=== PATIENT | female | born 1990 | race Hispanic/Latino ===

== ENCOUNTER 2023-11-03 16:54 | Emergency (ER) | payer SELFPAY ==
[2023-11-03 16:56] VITALS: BP 155/88
[2023-11-03 17:28] LABS: ALT (SGPT) 19 U/L (0-35); AST (SGOT) 26 U/L (14-36); Albumin 4.7 g/dl (3.5-5.0); Alkaline Phosphatase 68 U/L (38-126); Blood Urea Nitrogen 11 mg/dl (7-17); Calcium 10.1 mg/dl (8.4-10.2); Carbon Dioxide 21 mmol/L (22-30); Chloride 105 mmol/L (98-107); Glucose 108 mg/dl (70-99); Potassium 3.8 mmol/L (3.5-5.1); Sodium 138 mmol/L (135-145); Total Bilirubin 0.8 mg/dl (0.2-1.3); Total Protein 8.2 g/dl (6.3-8.2); eGFR > 60.00
[2023-11-03 17:38] LABS: Troponin I < 0.012 ng/ml
[2023-11-03 17:45] LABS: HCG, Serum Qualitative Screen Negative; INR 1.02; PT 13.6 Sec (11.4-14.6)
[2023-11-03 18:45] VITALS: BP 127/68
[2023-11-03 19:02] LABS: % Basophils 0.2 % (0-2); % Eosinophils 0.2 % (0-6); % Immature Granulocytes 0.3 % (0-0.5); % Monocytes 4.2 % (1.7-9.3); % Neutrophils 79.1 % (42.2-75.2); Absolute Lymphocytes 1.7 10^3/uL (1.2-3.4); Absolute Monocytes 0.4 10^3/uL (0.1-0.6); Absolute Neutrophils 8.3 10^3/uL (1.4-6.5); Hematocrit 40.2 % (37.0-47.0); Hemoglobin 14.7 g/dL (12.0-16.0); Mean Corp Hgb Conc. 36.6 g/dL (33.0-37.0); Mean Corpuscular Hgb 31.6 pg (27.0-31.0); Mean Corpuscular Volume 86.5 fL (81.0-99.0); Mean Platelet Volume 9.9 fL (7.4-10.4); Nucleated Red Blood Cells % 0 %; Platelet Count 361 10^3/uL (130-400); Red Blood Cell Count 4.65 10^6/uL (4.20-5.40); Red Cell Dist. Width 11.9 % (11.5-14.5); White Blood Cell Count 10.4 10^3/uL (4.8-10.8)
--- NOTE | 2023-11-03 19:15 | ED.GENMED ---
History of Present Illness
General
Chief Complaint: Chest Pain
Time Seen by Provider: 11/03/23 18:45
Travel History
Have you had any contact with someone who has COVID-19?: No
Do you have any symptoms of coronavirus? Fever > 100 degrees, chills, cough, shortness of breath, sore throat, loss of taste or smell, muscle aches, or headache?: No
History of Present Illness
History of Present Illness:
32-year-old female presents to the emergency department for evaluation of left-sided chest pain ongoing for the past week. Patient requires Cambodian interpretation throughout the examination. Pain is mildly pleuritic, nonradiating. She denies any
traumatic injuries to the chest or upper extremity. Denies any associated fever, chills, sweats, coughing, nausea, vomiting, or diarrhea. She is not on any exogenous hormones. She does have a history of tuberculosis that was most recently treated
in 2018
Past History
Past History
ED Past Medical History: None
ED Past Surgical History: None
Social History
Tobacco: Non-smoker
Alcohol: None
Drug: None
Personal: Single
Living: other (WITH BOYFRIEND)
Review of Systems
Review of Systems
Allergies reviewed?: Yes
All Other Systems: ROS reviewed and negative except as documented in HPI and ROS
Phy Exam
Physical Exam
Physical Exam:
GEN: Well appearing, NAD, WDWN
HEENT: Oral mucosa moist, no scleral icterus
Cardiac: Regular rate
Lung: No respiratory distress, no tachypnea
MSK: No gross deformity or injuries
Skin: Good color, no pallor or jaundice, no rashes
Neuro: AO x3, moves all extremities freely
Psych: Calm, cooperative
Scores
Heart Score for Chest Pain Patients
STEMI patient?: No
History: Slightly or Non-Suspicious
ECG: Normal
Age: </= 45 years
Risk Factors: No Risk Factors
Troponin: </= Normal Limit
Heart Score for Chest Pain Patients: 0
Heart Score Risk: 2.5% MACE over next 6 weeks
Course
Orders/Labs/Results
Orders:
Orders
11/03/23 16:59
Electrocardiogram (*1) Urgent
Reason for Study: Chest Pain
EKG- Treatment ONCE
Test Result ONCE
11/03/23 17:08
Comprehensive Metabolic Panel Urgent
HCG, Serum Qualitative Screen Urgent
Prothrombin Time Urgent
Troponin I Urgent
11/03/23 18:45
Complete Blood Count/With Diff Urgent
11/03/23 19:24
D-Dimer Urgent
11/03/23 19:49
CR Chest - 2 Views Urgent
Comment:
Reason For Exam: L chest pain
Abnormal Lab Results
11/03/23 11/03/23
17:08 18:45
MCH 31.6 H pg
(27.0-31.0)
Absolute Neuts (auto) 8.3 H 10^3/uL
(1.4-6.5)
Neutrophils % 79.1 H %
(42.2-75.2)
Lymphocytes % 16.0 L %
(20.5-51.1)
Carbon Dioxide 21 L mmol/L
(22-30)
Glucose 108 H mg/dl
(70-99)
11/03/23 18:45
11/03/23 17:08
Vital Signs
Initial and Last Documented VS:
Initial Vital Signs
Temp Pulse Resp BP Pulse Ox
98.6 F 130 18 155/88 100
11/03/23 16:56 11/03/23 16:56 11/03/23 16:56 11/03/23 16:56 11/03/23 16:56
Last Documented Vital Signs
Temp Pulse Resp BP Pulse Ox
98.6 F 95 18 117/69 98
11/03/23 16:56 11/03/23 20:15 11/03/23 20:15 11/03/23 20:00 11/03/23 20:00
Comment
Comment:
EKG independently interpreted by me shows a sinus tachycardia with no ST changes concerning for ischemia. Patient is noted to be intermittently tachycardic however this does seem to be provoked predominantly by staff members entering the room. She
does have somewhat reproducible chest wall tenderness on exam and chest x-ray shows right upper lobe residual scarring with no evidence for acute disease. EKG and cardiac workup is unremarkable, additionally D-dimer is negative, this was obtained
in the setting of her recurrent tachycardia. Likely musculoskeletal pain, discussed supportive care and return parameters
*Critical Care Note
Total Time (30-74mins, 75-104mins- exclusive of procedures): Not Applicable
ED Attending Note
-
Portions of this chart may have been created with voice recognition software.� Occasional wrong word or��sound alike� substitutions may have occurred due to the inherent limitations of voice recognition software.
Discharge Plan
Departure
Patient Disposition: Home (Routine Discharge)
Date of Disposition: 11/03/23
Time of Disposition: 20:47
Patient with high blood pressure during this ER visit?: No
Discharge Problem:
Atypical chest pain
Instructions: Chest Pain That Is Not Caused by the Heart (DC)
Prescriptions:
No Action
isoniazid 300 MG tablet
300 mg PO DAILY Qty: 30 0RF
rifampin 300 MG capsule
600 mg PO DAILY 0RF
ethambutol [Myambutol] 400 MG tablet
800 mg PO DAILY 0RF
ethambutol 100 MG tablet
200 mg PO DAILY 0RF
pyrazinamide 500 MG tablet
1,250 mg PO DAILY 0RF
Referrals:
UNKNOWN - PT DOES,NOT KNOW [Family Provider] -
Interventions
Interventions:
*Risk Screen - Suicide Last Done: 11/03/23 16:56
*General Assessment Last Done: 11/03/23 16:56
*Neglect/Abuse Screening Last Done: 11/03/23 16:56
*Nursing Disposition Last Done: 11/03/23 21:04
ED- Cardiac Assessment Last Done: 11/03/23 21:02
Discharge Date and Time
Discharge Date/Time: 11/03/23 21:04
[2023-11-03 19:23] VITALS: BP 136/84
[2023-11-03 19:44] LABS: D-Dimer < 0.27 ug/mlFEU (0.00-0.50)
[2023-11-03 20:00] VITALS: BP 117/69
== END 2023-11-03 21:04 | disposition home or self-care (01) ==
LOC: EMR 16:54
PROVIDERS: Physician Assistant; EMERGENCY PHYSICIAN Emergency Medicine
DX: R07.89 Other chest pain (principal); R00.0 Tachycardia, unspecified; Z86.11 Personal history of tuberculosis
CPT/HCPCS: 99283; 71046; 80053; 84484; 84703; 85025; 85379; 85610; 93005